=== PATIENT | male | born 1975 | race Two or more races ===

== ENCOUNTER 2024-08-06 13:40 | Outpatient (AMB) | payer MEDICAID, SELFPAY ==
--- NOTE | 2024-08-06 13:48 | PD.RESCLINIC ---
Vital Signs 08/06/24 13:53 Height 1.7 m Height Method Stated Weight 86.353 kg Weight Measurement Method Standing Scale BMI 29.8 BP 125/77 Blood Pressure Source Automatic Cuff Blood Pressure Location Left Upper Arm Position Sitting Respiration 18 Pulse 82 Pulse Source Monitor Temp 98.1 F Temp Source Oral Pulse Oximetry (%) 98 Oxygen Delivery Method Room Air Allergies/Meds Allergies & Medications Allergies No Known Allergies Allergy (Verified 08/06/24 13:54) Medication Reconciliation lisinopril 10 mg tablet 10 mg PO QDAY #30 tabs 07/31/24 [Rx Confirmed 08/06/24] amlodipine 5 mg tablet 5 mg PO QDAY #30 tabs 08/06/24 [Rx] atorvastatin 40 mg tablet 40 mg PO QDAY #30 tabs 08/06/24 [Rx] lisinopril 5 mg tablet 5 mg PO QDAY #30 tabs 08/06/24 [Rx] MA Intake Visit Data Collection New Patient or Established: Established Patient (seen at [facility] within 3 years) Seen by Clinical Staff ONLY (RN/MA): No Pain Present Currently: No Pain scale:: 0 Pain Scale Used: [place]/Numerical PCP or OBGYN visit in last 3 months: Yes Do You Feel Safe at Home: Yes Authorities Contacted: N/A Smoking Status Smoking Status: Never smoker Immunization / Flu Flu Vaccine in the Last 12 Months: No Flu Vaccine Exclusion Criteria: No Exclusion Criteria Past Medical History Past Medical History CARDIAC: Positive Hypertension; Negative Congestive Heart Failure RESPIRATORY: Negative Chronic Obstructive Pulmonary Disease (COPD) or Asthma GENITOURINARY: Negative Renal Disease ENDOCRINE: Positive Endocrine Disorders (Pre-Diabetic); Negative Diabetes Mellitus Type 1 or Diabetes Mellitus Type 2 HEMATOLOGIC: Negative Sickle Cell Disease Social History SMOKING STATUS: Smoking status: Never smoker ALCOHOL: Alcohol Intake: Never HOUSING: Housing: House LIVES WITH: Lives With: Family and Spouse Patient Portal Questionairsaritha Social History Living Situation History Housing: House Housing Other:: Pt lives with and family Tobacco History Smoking Status: Never smoker Alcohol History Alcohol Intake: Never Domestic Abuse History Do You Feel Safe at Home: Yes Review of Systems Report any current symptoms Only answer those that you have currently: Past Medical History Past Medical History Have you ever been diagnosed with any of the following: Cardiology Problems Congestive Heart Failure: No Hypertension: Yes Respiratory Problems Chronic Obstructive Pulmonary Disease (COPD): No Asthma: No Genital/Urinary Problems Renal Disease: No Endocrine Problems Diabetes Mellitus Type 1: No Diabetes Mellitus Type 2: No Blood Problems Sickle Cell Disease: No History of Present Illness HPI Narrative Today 08/06/2024 a 49-year-old male with past medical history of hypertension, recently diagnosed with prediabetes (A1c 6.2%), HTN, and hyperlipidemia after [facility] hospital admission for nausea/vomiting after a syncopal episode week of 07/30/2024. He was admitted for management of hypertensive urgency and syncope. Troponins were negative x 4. Orthostatic vitals were negative. DL Cholesterol was 307. Triglyceride 80, HDL is 42. Echo: Normal LV size and function. Grade I diastolic dysfunction. Mild LVH. Estimated EF 60-65% Normal RV size and function. Trace MR, TR. Cardiology recommended atorvastatin 40 mg once daily, lisinopril 10 and amlodipine 5 mg, which he is taking. He can eventually increase atorvastatin slowly to 80 mg in 1 month as tolerated. Patient states that he suffered from headaches in the past and he was given antihypertensives, which helped.He stopped going to get his medication because he thought he was better. He has not taken anything since 1 year ago until recent discharge from hospital. He now denies any headaches with current regimen. Will continue atorvastatin 40 mg once daily, lisinopril 5 and amlodipine 5 mg. He recently applied for [employer] and is pending possible coverage. Pending appointment with Dr. Gomez cardiology. Review of Systems Review of Systems Systems Reviewed: All systems reviewed, normal except as documented Objective/Exam Narrative Physical exam: GENERAL: Middle-age male, conversational, no acute distress, well nourished with daughter next to him. HEENT: Head AT/ NC. Mucous membranes moist. 20/20 vision on snellen chart in office CARDIOVASCULAR: RRR. Normal S1/S2. RESPIRATORY: CTAB. No wheezing, rhonchi, crackles. GASTROINTESTINAL: Abdomen soft, non tender no palpable masses. ++ Bowel sounds all quadrants. MUSCULOSKELETAL:? No cyanosis or edema, no visible joint swelling. NEUROLOGICAL: Alert and oriented to person, place, time. Cranial nerves II to XII grossly intact. INTEGUMENTARY: No obvious rashes, dry. Assessment & Plan Diagnosis / Problem List (1) Hypertension: Status: Acute Assessment & Plan: Patient has hx of hypertension and was recently admited to hospital for severely elevated BP. He was discharged on lisinopril, atorvastatin, and amlodipine. He has been compliant with medications today. Home BP readings: 120-140/80-90 daily, usually on the higher end at night. Takes medications at night. Blood pressure of 125/77. HR 82, and 02 sat 98% room air. Plan: -Continue lisinopril 5mg and amlodipine 5mg -Continue blood pressure readings daily -less than 2gm Na+ daily -lean meats and vegetable diet discussed (2) Hyperlipidemia: Status: Acute Assessment & Plan: Recent diagnosis with LDL>300. Patient has been compliant on atorvastatin 40mg since 07/30/2024. Plan: -Continue atorvastatin 40mg daily -appt will be made with business and services instructor Dr. Gomez -repeat labs: CMP, fasting glucose A1c in 3 months (3) Pre-diabetes: Status: Acute Assessment & Plan: His A1c is 6.2% on 07/30/2024. Patient is aware that his is prediabetic and has adjusted his diet to low carbohydrate. Sensation is intact and no complaints besides visual problems while reading. 20/20 Snellen chart. Plan: -Continue low carbohydrate diet -patient needs referral for ophthalologist- in 3 months (4) Preventative health care: Status: Acute Assessment & Plan: Colonoscopy vs cologaurd discussion with patient. Tetanus shot discussed with patient. Plan: -will revisit these topics on next visit. Orders: Referrals Cardiology I10 - Essential (primary) hypertension, E78.5 - Hyperlipidemia, unspecified Additional Assessment Attending note: I, Srinivas Mullins MD, attest that I was physically present for the lisa portions of the service and evaluated the patient with the resident and I reviewed and discussed the case with the resident and agree with the resident's findings and plans of care as documented above. Srinivas Mullins MD Physician Billing New Patient New Patient: E/M Level 3-CPT 04346 Office Procedures [facility] Level of Care Nursing/Assessment Patient Status: Established Patient Nursing Assessment/Reassessment: Medication Reconciliation, Update PMH in EMR and Vital Signs Coordination of Care: Complex Care and Chronic Disease 1-5, Education Complex Pt/Fam, Results/Orders obtained and Staff clarify orders Established Patient Charge Established Patient Point Assignment: 90 Established Patient Point Charge: EP Level 3 (80-115)
[2024-08-06 13:53] VITALS: BP 125/77; PULSE 82; RESP 18; TEMP 36.7; O2SAT 98; BMI 29.8
== END 2024-08-06 14:55 | disposition home or self-care (01) ==
LOC: HODAHC 13:40
PROVIDERS: Supervising Provider Internal Medicine; Visit Provider Student in an Organized Health Care Education/Training Program
DX: I10 Essential (primary) hypertension (principal); E78.5 Hyperlipidemia, unspecified; R73.03 Prediabetes
CPT/HCPCS: 99213; G0463